=== PATIENT | female | born 1975 | race Caucasian/White ===

== ENCOUNTER → 2016-11-14 | Outpatient (CLI) | payer OTHER ==
--- NOTE | 2016-11-14 16:43 | RAD ---
Indication pain associated with an injury. AP oblique and lateral views of the right wrist were obtained. A splint is noted on the volar side of the wrist. No bony abnormality is seen
== END | disposition home or self-care (01) ==
LOC: RAD 16:03
DX: M25.531 Pain in right wrist (principal)
CPT/HCPCS: 73110